=== PATIENT | female | born 1955 | race Caucasian/White ===

== ENCOUNTER → 2016-10-13 | Outpatient (CLI) | payer OTHER ==
--- NOTE | 2016-10-13 14:55 | RAD ---
Lumbar spine, 3 views, 10/13/2016: History: Low back pain The lumbar vertebral heights and intervertebral disc spaces are well-maintained. No fracture or dislocation is identified. There are moderately severe hypertrophic degenerative changes involving the facet joints bilaterally in the lumbar spine. Aortic calcific plaquing is present. Surgical clips are noted in the abdomen and pelvis. IMPRESSION: 1. Moderately severe facet joint arthropathy in the lower lumbar spine. 2. No acute bony abnormality is detected.
== END | disposition home or self-care (01) ==
LOC: RAD 10:03
PROVIDERS: ATTEND Emergency Medicine
DX: M54.5 Low back pain (principal)
CPT/HCPCS: 72100

== ENCOUNTER 2016-12-23 11:32 | Emergency (ER) | payer SELFPAY ==
[~2016-12-23] VITALS: Ht 165.1 cm; Wt 63.5 kg
[2016-12-23] MEDS ORDERED: ONDANSETRON PF 4 MG/2 ML VIAL. IV ONE (12:15)
[2016-12-23 12:18] LABS: BASO % 0 % (0-3); EOS % 0 % (0-3); HEMATOCRIT 48.2 % (36.0-47.0); HEMOGLOBIN 16.1 g/dL (12.0-15.5); LYMPH # 1.5 x10^3/uL (1.0-4.8); LYMPH % 13 % (24-48); MEAN CORPUSCULAR HEMOGLOBIN 31 pg (25-35); MEAN CORPUSCULAR HGB CONC 33 g/dL (31-37); MEAN CORPUSCULAR VOLUME 92 fL (79-100); MONO % 6 % (0-9); NEUT % 80 % (31-73); PLATELET COUNT 292 x10^3/uL (140-400); RED BLOOD COUNT 5.24 x10^6/uL (3.50-5.40); WHITE BLOOD COUNT 11.8 x10^3/uL (4.0-11.0)
[2016-12-23 12:32] LABS: CALCIUM 9.7 mg/dL (8.5-10.1); GFR 56.7; POTASSIUM 3.7 mmol/L (3.5-5.1)
[2016-12-23 12:37] LABS: ALBUMIN 4.5 g/dL (3.4-5.0); ALBUMIN/GLOBULIN RATIO 1.1 (1.0-1.7); TOTAL BILIRUBIN 0.8 mg/dL (0.2-1.0); TOTAL PROTEIN 8.6 g/dL (6.4-8.2)
--- NOTE | 2016-12-23 12:40 | RAD ---
CT scan of the head without contrast 12/23/2016 Clinical history: New onset seizure. Technique: Unenhanced, contiguous, 5 mm axial sections were obtained through the head. One or more of the following individualized dose reduction techniques were utilized for this study: 1. Automated exposure control. 2. Adjustment of the mA and/or kV according to patient size. 3. Use of iterative reconstruction technique. Findings: The ventricles and sulci are within normal limits in size and configuration. No area of abnormal attenuation is involving the brain parenchyma. No extra-axial fluid collection is seen. No skull fracture is noted. Impression: Negative study.
--- NOTE | 2016-12-23 12:52 | ED.ADGEN ---
Past Medical History Past Medical History: No Pertinent History, Cancer Additional Past Medical Histor: breast cancer Additional Past Surgical Histo: L breast mastectomy, bladder cancer- removed tumor and did chemo Alcohol Use: None Drug Use: None Adult General Chief Complaint Chief Complaint: SEIZURE HPI HPI Patient is a 61 year old female who presents with new-onset witnessed seizure while at home. Patient was sitting, became unresponsive with her eyes open and had brief tonic-clonic seizure activity involving upper and lower extremities lasting less than 5 minutes per her mother. Patient didn't bite her lower lip and Patient was briefly postictal but alert and oriented to person and place on EMS arrival. Patient denies seizure history. Denies headache, reports nausea with 2 episodes of emesis.. Denies change in vision, difficulty swallowing, extremity weakness or loss of sensation. No chest pain shortness of breath or palpitations. No fevers chills sweats or rash. No recent medical illness. Patient is not currently on any medications. She discontinued hydrocodone and Xanax 12 days ago. Patient previously been on 1 mg of Xanax 3 times a day for 10 years. Patient recently quit smoking, she denies any alcohol consumption or illicit drug use. Additional history is obtained from the patient family members who are present in the room. Review of Systems Review of Systems Review symptoms as per history of present illness. All other review of symptoms are negative. Current Medications Current Medications Current Medications Medications (Trade) Dose Ordered Sig/Angel Start Time Stop Time Status Last Admin Dose Admin Lorazepam (Ativan) 1 mg 1X ONCE 12/23/16 12:15 12/23/16 12:16 DC 12/23/16 12:35 1 MG Ondansetron HCl (Zofran) 4 mg 1X ONCE 12/23/16 12:15 12/23/16 12:16 DC 12/23/16 12:34 4 MG Allergies Allergies Allergies Coded Allergies Type Severity Reaction Last Updated Verified Sulfa (Sulfonamide Antibiotics) Allergy Intermediate rash 12/23/16 Yes Physical Exam Physical Exam Constitutional: Well developed, well nourished, no acute distress. HENT: Normocephalic, atraumatic, bilateral external ears normal, oropharynx moist, no oral exudates, nose normal. Eyes: PERRLA, EOMI, conjunctiva normal. Neck: Normal range of motion, no tenderness. Cardiovascular:Heart rate regular rhythm, no murmur. Lungs & Thorax: Bilateral breath sounds clear to auscultation. Abdomen: Bowel sounds normal, soft, no tenderness. Skin: Warm, dry, no erythema, no rash. Back: No tenderness. Extremities: No tenderness. Neurologic: Alert and oriented X 3, normal motor function, normal sensory function, no focal deficits noted. Psychologic: Affect normal, judgement normal, mood normal. Current Patient Data Vital Signs Vital Signs Date Time Temp Pulse Resp B/P (MAP) Pulse Ox O2 Delivery O2 Flow Rate FiO2 12/23/16 13:35 76 109/73 (85) 93 Room Air 12/23/16 11:53 97.8 20 97.8 Lab Values Laboratory Tests Test 12/23/16 12:00 12/23/16 12:40 White Blood Count 11.8 x10^3/uL (4.0-11.0) H Red Blood Count 5.24 x10^6/uL (3.50-5.40) Hemoglobin 16.1 g/dL (12.0-15.5) H Hematocrit 48.2 % (36.0-47.0) H Mean Corpuscular Volume 92 fL (79-100) Mean Corpuscular Hemoglobin 31 pg (25-35) Mean Corpuscular Hemoglobin Concent 33 g/dL (31-37) Red Cell Distribution Width 13.0 % (11.5-14.5) Platelet Count 292 x10^3/uL (140-400) Neutrophils (%) (Auto) 80 % (31-73) H Lymphocytes (%) (Auto) 13 % (24-48) L Monocytes (%) (Auto) 6 % (0-9) Eosinophils (%) (Auto) 0 % (0-3) Basophils (%) (Auto) 0 % (0-3) Neutrophils # (Auto) 9.5 x10^3uL (1.8-7.7) H Lymphocytes # (Auto) 1.5 x10^3/uL (1.0-4.8) Monocytes # (Auto) 0.8 x10^3/uL (0.0-1.1) Eosinophils # (Auto) 0.0 x10^3/uL (0.0-0.7) Basophils # (Auto) 0.0 x10^3/uL (0.0-0.2) Sodium Level 137 mmol/L (136-145) Potassium Level 3.7 mmol/L (3.5-5.1) Chloride Level 99 mmol/L (98-107) Carbon Dioxide Level 29 mmol/L (21-32) Anion Gap 9 (6-14) Blood Urea Nitrogen 11 mg/dL (7-20) Creatinine 1.0 mg/dL (0.6-1.0) Estimated GFR (Cockcroft-Gault) 56.7 BUN/Creatinine Ratio 11 (6-20) Glucose Level 149 mg/dL (70-99) H Calcium Level 9.7 mg/dL (8.5-10.1) Total Bilirubin 0.8 mg/dL (0.2-1.0) Aspartate Amino Transferase (AST) 22 U/L (15-37) Alanine Aminotransferase (ALT) 21 U/L (14-59) Alkaline Phosphatase 93 U/L (46-116) Total Protein 8.6 g/dL (6.4-8.2) H Albumin 4.5 g/dL (3.4-5.0) Albumin/Globulin Ratio 1.1 (1.0-1.7) Urine Collection Type U cath Urine Color Yellow Urine Clarity Clear Urine pH 5.5 Urine Specific [place] 1.020 Urine Protein 100 mg/dL (NEG-TRACE) Urine Glucose (UA) Negative mg/dL (NEG) Urine Ketones (Stick) Negative mg/dL (NEG) Urine Blood Moderate (NEG) Urine Nitrite Negative (NEG) Urine Bilirubin Negative (NEG) Urine Urobilinogen Dipstick 0.2 mg/dL (0.2 mg/dL) Urine Leukocyte Esterase Negative (NEG) Urine RBC 1-2 /HPF (0-2) Urine WBC Occ /HPF (0-4) Urine Amorphous Sediment Present /HPF Urine Bacteria Few /HPF (0-FEW) Urine Opiates Screen Pos (NEG) Urine Methadone Screen Neg (NEG) Urine Barbiturates Neg (NEG) Urine Phencyclidine Screen Neg (NEG) Urine Amphetamine/Methamphetamine Neg (NEG) Urine Benzodiazepines Screen Pos (NEG) Urine Cocaine Screen Neg (NEG) Urine Cannabinoids Screen Neg (NEG) Urine Ethyl Alcohol Neg (NEG) Laboratory Tests 12/23/16 12:00 Laboratory Tests 12/23/16 12:00 EKG EKG [EKG:] Radiology/Procedures Radiology/Procedures [CT head: negative] Course & Med Decision Making Course & Med Decision Making Pertinent Labs and Imaging studies reviewed. (See chart for details) [New onset seizure, no neurologic deficits on exam. Vital signs stable. Lab work , imaging unremarkable. Etiology of seizure is unclear. Although patient does not appear to be in benzodiazepine withdrawal, recent discontinuance of Xanax may be protruding factors to the patient's seizure episode. Ativan given while in the emergency department. Will defer further evaluation and management to the patient's PCP. Patient will be discharged standard seizure precautions. Return precautions reviewed.] Dragon Disclaimer Dragon Disclaimer This electronic medical record was generated, in whole or in part, using a voice recognition dictation system. LILY JEFFERY DO Dec 23, 2016 12:52
[2016-12-23 12:55] LABS: BILIRUBIN,URINE NEGATIVE (NEG); GLUCOSE,URINE NEGATIVE (NEG); NITRITE,URINE NEGATIVE (NEG); PH,URINE 5.5; PROTEIN,URINE 100 mg/dL (NEG-TRACE); UROBILINOGEN,URINE 0.2 mg/dL (0.2 mg/dL)
[2016-12-23 13:04] LABS: BACTERIA,URINE FEW /HPF (0-FEW); WBC,URINE OCC /HPF (0-4)
[2016-12-23 13:11] LABS: BARBITURATES NEG (NEG); BENZODIAZEPINES POS (NEG); CANNABINOIDS NEG (NEG); COCAINE NEG (NEG); METHADONE NEG (NEG); OPIATES POS (NEG); PHENCYCLIDINE NEG (NEG)
[2016-12-23 13:35] VITALS: BP 109/73
--- NOTE | 2016-12-23 14:24 | EKG ---
[facility] [address] [place] [address] Test Date: 2016-12-23 Test Time: 12:47:58 Pat Name: ASYA SEVILLA Department: Room: Gender: F Surgery Assistant: : 1955 Requested By: LILY JEFFERY Order Number: [id number] Reading MD: Mio Hernández Measurements Intervals [place] Rate: 79 P: 75 [place]: 152 QRS: 44 QRSD: 88 T: 28 QT: 392 QTc: 456 Interpretive Statements SINUS RHYTHM Electronically Signed On 12-24-2016 11:08:55 CDT by Mio Hernández
== END 2016-12-23 14:46 | disposition home or self-care (01) ==
LOC: ER 11:32
DX: R56.9 Unspecified convulsions (principal); Z87.891 Personal history of nicotine dependence; Z90.12 Acquired absence of left breast and nipple; Z88.2 Allergy status to sulfonamides
CPT/HCPCS: 36415; 70450; 80053; 80305; 80320; 81001; 85027; 93005; 96374; 96375; 99285; J2060; J2405; G0481

== ENCOUNTER → 2017-06-16 | Day surgery (SDC) | payer OTHER ==
[~2017-06-16] MED LIST: HYDROmorphone 2 MG/ML VIAL IV; LIDOCAINE 1% PF 2 ML VIAL. ID; LIDOCAINE 2% PF Vial for OR 5 ML VIAL.; MORPHINE SULFATE 2 MG/ML DISP.SYRIN. IV; ONDANSETRON PF 4 MG/2 ML VIAL. IV; PROCHLORPERAZINE 10 MG/2 ML VIAL. IV; PROPOFOL 40 ML IV; fentaNYL PF VIAL 100 MCG/2 ML VIAL IV
[2017-06-16] MEDS: IV RINGERS,LACTATED 1000ML 1,000 ML IV (06:26)
[2017-06-16] MEDS: IPRATRPIUM/ALBUTEROL 0.5/2.5MG 3 ML NEBU. NEB (08:38)
== END | disposition home or self-care (01) ==
LOC: ENDOS 05:38
DX: Z12.11 Encounter for screening for malignant neoplasm of colon (principal); K29.50 Unspecified chronic gastritis without bleeding; K64.0 First degree hemorrhoids; K57.30 Diverticulosis of large intestine without perforation or abscess without bleeding; M19.91 Primary osteoarthritis, unspecified site; F41.9 Anxiety disorder, unspecified; F32.9 Major depressive disorder, single episode, unspecified; Z87.39 Personal history of other diseases of the musculoskeletal system and connective tissue; Z90.49 Acquired absence of other specified parts of digestive tract; Z90.710 Acquired absence of both cervix and uterus; Z88.0 Allergy status to penicillin
CPT/HCPCS: 43235; 94640; J2704; J7620

== ENCOUNTER → 2017-06-25 | Outpatient (CLI) | payer OTHER ==
[2017-06-16 08:05] VITALS: BP 121/68
[~2017-06-25] MED LIST changes: +ALPR0.254 PO; +HYDR-2766 PO; -HYDROmorphone 2 MG/ML VIAL IV; -LIDOCAINE 1% PF 2 ML VIAL. ID; -LIDOCAINE 2% PF Vial for OR 5 ML VIAL.; -MORPHINE SULFATE 2 MG/ML DISP.SYRIN. IV; +MULT-246 PO; -ONDANSETRON PF 4 MG/2 ML VIAL. IV; -PROCHLORPERAZINE 10 MG/2 ML VIAL. IV; -PROPOFOL 40 ML IV; +VENTOLIN HFA18 GM INH; -fentaNYL PF VIAL 100 MCG/2 ML VIAL IV
--- NOTE | 2017-06-25 10:39 | RAD ---
Gastric imaging study 06/25/2017 Indication: Abdominal pain and bloating. Comparison study: None. Discussion: Imaging over the abdomen was performed following the administration of 2 mCi of technetium 99m labeled sulfur colloid in a solid meal. Gastric emptying half-time was calculated. Only minimal emptying of the stomach is noted on cine images. No measurable significant amount of gastric emptying is identified over 1 hour timeframe. Estimated gastric imaging half-time is 1346 minutes (normal 60 +/- 30 minutes). Impression: Delayed gastric emptying
== END | disposition home or self-care (01) ==
LOC: NM 07:48
PROVIDERS: ATTEND Internal Medicine Gastroenterology
DX: K30 Functional dyspepsia (principal)
CPT/HCPCS: 78264; A9541